=== PATIENT | male | born 1975 | race American Indian/Alaskan Native ===

== ENCOUNTER 2019-07-08 12:10 | Emergency (ER) | payer OTHER ==
--- NOTE | 2019-07-08 13:23 | Event Note ---
ED Screening Note Date of service: 07/08/19 Time: 13:17 ED Screening Note: This is a 44 y.o. M. that presents to the ER with urinary frequency and tingling in toes for 1 month. Associated symptoms of fatigue. PMH of HTN This initial assessment/diagnostic orders/clinical plan/treatment(s) is/are subject to change based on patients health status, clinical progression and re- assessment by fellow clinical providers in the ED. Further treatment and workup at subsequent clinical providers discretion. Patient/guardian urged not to elope from the ED as their condition may be serious if not clinically assessed and managed. Initial orders include: POC glucose greater than 500, 2nd glucose 495 Labs
[2019-07-08 14:30] LABS: Bilirubin,Urine NEG (Negative); Blood,Urine NEG (Negative); Color,Urine Colorless (Yellow); Protein,Urine <15 mg/dL mg/dL (Negative); Urobilinogen,Urine < 2.0 mg/dL (<2.0); WBC,Urine < 1.0 /HPF (0.0-6.0)
[2019-07-08 15:07] LABS: Basophils % (Auto) 0.4 % (0.0-1.8); Eosinophils % (Auto) 0.4 % (0.0-4.3); Hematocrit 44.7 % (35.5-45.6); Hemoglobin 14.9 gm/dl (11.8-15.2); Lymphocytes # (Auto) 1.4 K/mm3 (1.2-5.4); Lymphocytes % (Auto) 25.1 % (13.4-35.0); Mean Corpuscular HGB Conc 33 % (32-34); Mean Corpuscular Volume 84 fl (84-94); Monocytes # (Auto) 0.4 K/mm3 (0.0-0.8); Monocytes % (Auto) 6.7 % (0.0-7.3); Platelet Count 195 K/mm3 (140-440); Red Blood Count 5.34 M/mm3 (3.65-5.03); Red Cell Distribution Width 13.1 % (13.2-15.2)
[2019-07-08 15:27] LABS: BUN/Creatinine Ratio 15; Blood Urea Nitrogen 16 mg/dL (9-20); Calcium 9.6 mg/dL (8.4-10.2); Hemolysis Index 31
[2019-07-08] MEDS ORDERED: SODIUM CHLORIDE 0.9% 1000 ML 1,000 ML IV ONE (15:59)
[2019-07-08] MEDS ORDERED: INSULIN REGULAR, HUMAN 100 UNITS/1 ML IV ONE (15:59)
--- NOTE | 2019-07-08 16:02 | Emergency Department Report ---
HPI - General Chief Complaint: Weakness Time Seen by Provider: 07/08/19 13:16 - HPI HPI: 44-year-old -[place] male presents to the emergency department with complaint of a 1 month history of some generalized fatigue, increased thirst, increased urination. Patient has a past medical history of hypertension. Due to his complaints, an Accu-Chek was done in triage that showed a blood glucose greater than 500. The patient is in between primary care physicians but has seen his previous PCP and had a physical within the last year. He denies any chest pain, shortness of breath, fever, nausea, vomiting, abdominal pain. He has not taken anything for his symptoms prior to presentation today. ED Past Medical Hx - Past Medical History Hx Hypertension: Yes - Surgical History Additional Surgical History: HERNIA - Social History Smoking Status: Never Smoker Substance Use Type: None - Medications Home Medications: Home Medications Medication Instructions Recorded Confirmed Last Taken Type metFORMIN [Glucophage] 500 mg PO BID #60 tablet 07/08/19 Unknown Rx ED Review of Systems ROS: Stated complaint: NOT FEELING WELL Other details as noted in HPI Comment: All other systems reviewed and negative Constitutional: other (Fatigue). denies: fever Eyes: denies: eye pain, vision change ENT: denies: ear pain, throat pain Respiratory: denies: cough, shortness of breath Cardiovascular: denies: chest pain, palpitations Endocrine: increased thirst, increased urine Gastrointestinal: denies: abdominal pain, vomiting Genitourinary: frequency. denies: dysuria Musculoskeletal: denies: back pain, joint swelling Skin: denies: rash, lesions Neurological: denies: headache, weakness, numbness Physical Exam - Physical Exam Vital Signs: Vital Signs 07/08/19 12:13 Temperature 98.1 F Pulse Rate 97 H Respiratory 18 Rate Blood Pressure 152/88 O2 Sat by Pulse 97 Oximetry Physical Exam: GENERAL: The patient is well-developed well-nourished. HENT: Normocephalic. Atraumatic. Patient has moist mucous membranes. EYES: Extraocular motions are intact. NECK: Supple. Trachea is midline. CHEST/LUNGS: Clear to auscultation. There is no respiratory distress noted. HEART/CARDIOVASCULAR: Regular. There is no tachycardia. ABDOMEN: Abdomen is soft, nontender. Patient has normal bowel sounds. There is no abdominal distention. SKIN: Skin is warm and dry. NEURO: The patient is awake, alert, and oriented. The patient is cooperative. The patient has no focal neurologic deficits. Normal speech. MUSCULOSKELETAL: There is no tenderness or deformity. There is no limitation range of motion. There is no evidence of acute injury. ED Course Vital Signs 07/08/19 12:13 Temperature 98.1 F Pulse Rate 97 H Respiratory 18 Rate Blood Pressure 152/88 O2 Sat by Pulse 97 Oximetry ED Medical Decision Making - Lab Data Result diagrams: 07/08/19 14:29 07/08/19 14:29 - Medical Decision Making This patient presents with a one-month history of some generalized fatigue, increased urination and increased thirst. Through triage the patient was found to have an elevated blood sugar of about 450. Serum glucose was closer to 530. There is no venous acidosis or elevated anion gap and therefore does not appear consistent with diabetic ketoacidosis but the patient does appear to have new onset diabetes mellitus. He was given a liter of IV fluid and a dose of IV insulin and his blood sugar came down to about 280. His vital signs been stable throughout his ED course. The patient is feeling improved and appears safe for discharge home at this time. We discussed dietary changes including staying away from foods that are high in sugar, carbohydrates and starches. The patient will be started on metformin and will keep a blood sugar log. He says that he has active insurance and has been instructed to call the insurance company for referrals for a primary care physician and to follow-up in the next few days. The patient also has been instructed to return to the emergency department with any worsening of his symptoms or any acute distress. - Differential Diagnosis DKA, HHNK, UTI, new onset diabetes Critical Care Time: No Critical care attestation.: If time is entered above; I have spent that time in minutes in the direct care of this critically ill patient, excluding procedure time. ED Disposition Clinical Impression: Diabetes mellitus, new onset, Hyperglycemia Disposition: DC-01 TO HOME OR SELFCARE Is pt being admited?: No Condition: Stable Instructions: Metformin (By mouth), How to Check Your Blood Sugar (ED), Diabetes Mellitus Type 2 in Adults (ED) Additional Instructions: Please follow-up with a primary care physician in the next few days. I am starting you on metformin to treat your diabetes. This medication is taken twice daily and should be taken at breakfast and dinner. Do not skip meals. However, when you do eat, try to avoid any excessive sugar, carbohydrates and starches. Keep a blood sugar log. Return to the emergency department with any worsening of your symptoms or any acute distress. Prescriptions: metFORMIN [Glucophage] 500 mg PO BID #60 tablet Referrals: PRIMARY CARE, [Primary Care Provider] - 2-3 Days DYLLAN KAN MD [Staff Physician] - 2-3 Days MARGARET LUGO MD [Staff Physician] - 2-3 Days Time of Disposition: 17:28
[2019-07-08 17:40] VITALS: BP 146/88
== END 2019-07-08 17:53 | disposition home or self-care (01) ==
LOC: ED 12:10
DX: E11.65 Type 2 diabetes mellitus with hyperglycemia (principal); I10 Essential (primary) hypertension; Z79.899 Other long term (current) drug therapy
CPT/HCPCS: 36415; 80048; 81001; 82010; 82805; 82962; 85025; 96361; 96374; 99283; J7030; J1815

== ENCOUNTER 2020-04-23 10:11 | Emergency (ER) | payer OTHER ==
[2020-04-23 10:44] VITALS: BP 153/100
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
== END 2020-04-23 13:28 | disposition home or self-care (01) ==
LOC: ED 10:11
DX: S16.1XXA Strain of muscle, fascia and tendon at neck level, initial encounter (principal); S39.012A Strain of muscle, fascia and tendon of lower back, initial encounter; M25.531 Pain in right wrist; I10 Essential (primary) hypertension; Z98.890 Other specified postprocedural states; Z79.84 Long term (current) use of oral hypoglycemic drugs; Z79.899 Other long term (current) drug therapy; V49.49XA Driver injured in collision with other motor vehicles in traffic accident, initial encounter; Y93.89 Activity, other specified; Y92.89 Other specified places as the place of occurrence of the external cause; Y99.8 Other external cause status
CPT/HCPCS: 72040; 72100

== ENCOUNTER 2021-09-03 11:16 | Emergency (ER) | payer OTHER ==
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
[2021-09-03 15:20] VITALS: BP 126/82
== END 2021-09-03 15:21 | disposition home or self-care (01) ==
LOC: ED 11:16
DX: S63.592A Other specified sprain of left wrist, initial encounter (principal); M62.838 Other muscle spasm; Z79.899 Other long term (current) drug therapy; V89.2XXA Person injured in unspecified motor-vehicle accident, traffic, initial encounter; Y93.89 Activity, other specified; Y92.488 Other paved roadways as the place of occurrence of the external cause; Y99.8 Other external cause status
CPT/HCPCS: 72125; 99284